=== PATIENT | female | born 1955 | race Caucasian/White ===

== ENCOUNTER 2019-08-23 17:37 | Emergency (ER) | payer OTHER ==
[~2019-08-23] VITALS: Ht 167.6 cm; Wt 80.9 kg
[2019-08-23 17:41] VITALS: BP 137/79
[2019-08-23] MEDS ORDERED: DICL75TA PO (18:21)
[2019-08-23] MEDS ORDERED: CYCL-331 PO (18:21)
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
== END 2019-08-23 20:16 | disposition home or self-care (01) ==
LOC: ER 17:37
DX: S16.1XXA Strain of muscle, fascia and tendon at neck level, initial encounter (principal); S39.012A Strain of muscle, fascia and tendon of lower back, initial encounter; V49.49XA Driver injured in collision with other motor vehicles in traffic accident, initial encounter; Y93.89 Activity, other specified; Y92.410 Unspecified street and highway as the place of occurrence of the external cause; Y99.8 Other external cause status
CPT/HCPCS: 72050; 72110; 99284